=== PATIENT | female | born 1940 | race African-American/Black ===

== ENCOUNTER 2018-06-25 17:57 | Emergency (ER) | payer OTHER ==
[~2018-06-25 17:57] MED LIST: ADVAIR DISKUS 21 DSK INH; FLEXERIL 5MG TAB5 MG PO; GABAPENTIN300 MG PO; GEMFIBROZIL600 MG PO; HYDRODIURIL 112.5 M1 PO; LOSARTAN POTAS100 MG PO; LOSARTAN POTASS50 MG PO; MELOXICAM15 MG PO; METFORMIN1000 MG PO; OMEPRAZOLE20 MG PO; PERCOCET 325 MG1 TA2 PO; PRAVASTATIN SOD10 MG PO; TYLENOL #31 TAB PO
--- NOTE | 2018-06-25 18:54 | ED GENERAL ADULT ---
See Addendum History of Present Illness General Chief Complaint: Chest Pain Stated Complaint: CP, BACK PAIN, BODY ACHES, X "COUPLE WEEKS" Source: patient, family Exam Limitations: no limitations Vital Signs & Intake/Output Vital Signs & Intake/Output Vital Signs Date Time Temp Pulse Resp B/P B/P Pulse O2 O2 Flow FiO2 Mean Ox Delivery Rate 06/25 2026 87 18 183/78 94 Room Air 06/25 2008 97 Room Air 06/259 97.7 95 17 172/84 92 Room Air ED Intake and Output 06/26 0000 06/25 1200 Intake Total 0 Output Total Balance 0 Intake, IV 0 Allergies Coded Allergies: shrimp (Intermediate, HIVES 12/16/15) Reconcile Medications FLUTICASONE/SALMETEROL (Advair 250-50 Diskus) 1 DSK DSK 1 PUFF INH BID BREATHING PROBLEMS (Reported) Gabapentin 300 MG CAPSULE 1 CAP PO TID UNKNOWN (Reported) Gemfibrozil 600 MG TABLET 1 TAB PO BID CHOLESTEROL (Reported) Hydrochlorothiazide (Hydrodiuril 12.5 MG Tab) 12.5 MG CAPSULE 1 CAP PO DAILY WATER PILL (Reported) Losartan Potassium 100 MG TAB 1 TAB PO DAILY BP (Reported) Meloxicam 15 MG TAB 1 TAB PO DAILY PAIN (Reported) METFORMIN HCL (Metformin) 1,000 MG TAB 1 TAB PO BID DIABETES (Reported) Pravastatin (Pravastatin Sodium) 10 MG TAB 1 TAB PO DAILY CHOLESTEROL ( Reported) Triage Note: PT TO ED WITH C/O CHEST DISCOMFORT, COUGH, WEAKNESS X 2 WEEKS. STATES WAS SEEN AT URGENT CARE ONE MONTH AGO AND PLACED ON PO ABTS FOR PNA. FINISHED COURSE OF ABTS. 02 SAT 92-94 % AT TRIAGE. Triage Nurses Notes Reviewed? yes HPI: Pt is a 77 y/o F PMHx COPD, HTN, DM2 presenting with a cough, chest discomfort, back pain x 3 weeks. Pt states that she has pain in her lower back and chest when she takes a deep breath or after coughing. Pt states that she has no pain at rest. Pt states cp is sternal when it occurs and does not radiate. Pt states she was diagnosed with PNA, and finished abx 3 weeks ago. Since then, pt has had a lingering productive cough. Pt states that over the past week, the cough has been improving. Pt admits to some chills, although denies fevers, SOB, GUZM[place]N, hemoptysis, lightheadedness, dizziness, abdominal pain, N/V/D/C. (Pieter Andrew MD) Past History Travel History Traveled to [place] past 21 day No Medical History Any Pertinent Medical History? 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 No (Pieter Andrew MD) Review of Systems Review of Systems Constitutional: Reports: see HPI. Respiratory: Reports: see HPI. Cardiovascular: Reports: see HPI. GI: Denies: see HPI. Genitourinary: Denies: see HPI. Musculoskeletal: Reports: see HPI. (Pieter Andrew MD) Physical Exam Physical Exam General Appearance: well developed/nourished, no apparent distress, alert Head: atraumatic, normal appearance Eyes: Bilateral: normal appearance. Neck: normal inspection, supple Respiratory: normal breath sounds, lungs clear Cardiovascular: regular rate/rhythm, NMRG Peripheral Pulses: 2+ radial (R), 2+ radial (L), 2+ dorsalis pedis (R), 2+ dorsalis pedis (L) Gastrointestinal: normal bowel sounds, soft, non-tender Extremities: normal inspection, no edema Skin: intact, normal color, warm/dry Lymphatic: No palpable LAD Core Measures ACS in differential dx? Yes CVA/TIA Diagnosis: No Sepsis Present: No Sepsis Focused Exam Completed? Yes (Pieter Andrew MD) Progress Differential Diagnoses I considered the following diagnoses in my evaluation of the patient: Could be recurrent pneumonia, low suspicion for severe metabolic derangement, myositis or arthritis. Low suspicion also for acute traumatic process. Plan of Care: Orders Procedure Date/time Status TROPONIN LEVEL 06/25 1831 Complete COMPREHENSIVE METABOLIC PANEL 06/25 183 Complete CBC WITHOUT DIFFERENTIAL 06/25 1831 Complete EKG 06/25 1759 Active Laboratory Tests 06/25/18 1840: Anion Gap 10, Estimated GFR 54 L, BUN/Creatinine Ratio 16.0, Glucose 135 H, Calcium 10.0, Total Bilirubin 0.3, AST 14, ALT 18, Alkaline Phosphatase 83, Troponin I < 0.01, Total Protein 7.5, Albumin 4.3, Globulin 3.2, Albumin/ Globulin Ratio 1.3, CBC w Diff NO MAN DIFF REQ, RBC 3.75 L, MCV 84.1, MCH 28.0, MCHC 33.3, RDW 17.9 H, MPV 7.9, Gran % 71.7, Lymphocytes % 16.4 L, Monocytes % 10.6 H, Eosinophils % 1.1, Basophils % 0.2, Absolute Granulocytes 6.3, Absolute Lymphocytes 1.5, Absolute Monocytes 0.9 H, Absolute Eosinophils 0.1, Absolute Basophils 0 Plan for labs, chest x-ray, EKG, reassessment Initial ED EKG: normal intervals, normal p-waves, normal QRS complex, normal sinus rhythm (Pieter Andrew MD) Departure Departure Time of Disposition: 2046 Disposition: HOME OR SELF CARE Condition: Stable Clinical Impression Primary Impression: Muscular aches Secondary Impressions: Normocytic anemia Referrals: July RUVALCABA,Nav Coe (PCP/Family) Additional Instructions: Thank you for coming to [facility] today. As we discussed, you have worsening anemia of unclear cause. It is important that you follow-up with your doctor for this problem. It is not clear why you are aching, although could be related to the anemia. Please return to the hospital if your symptoms get any worse or you develop any new concerning symptoms such as shortness of breath, chest pain, abdominal pain, nausea, diarrhea. Departure Forms: Customer Survey General Discharge Information (Pieter Andrew MD) PA/GASOLINE TRUCK OPERATOR Co-Sign Statement Statement: ED Attending supervision documentation- I saw and evaluated the patient. I have also reviewed all the pertinent lab results and diagnostic results. I agree with the findings and the plan of care as documented in the PA's/GASOLINE TRUCK OPERATOR's documentation. x I have reviewed the ED Record and agree with the PA's/GASOLINE TRUCK OPERATOR's documentation. [] Additions or exceptions (if any) to the PAs/GASOLINE TRUCK OPERATOR's note and plan are summarized below: [] (Shawn RUVALCABA,Jim) Critical Care Note Critical Care Note Critical Care Time: non-applicable (Pieter Andrew MD)
[2018-06-25 18:57] LABS: ABSOLUTE BASOPHIL COUNT 0 /CUMM (0.0-0.2); ABSOLUTE EOSINOPHIL COUNT 0.1 /CUMM (0.0-0.7); ABSOLUTE GRANULOCYTE CT 6.3 /CUMM (1.4-6.5); ABSOLUTE LYMPH COUNT 1.5 /CUMM (1.2-3.4); ABSOLUTE MONOCYTE COUNT 0.9 /CUMM (0.10-0.60); BASOPHIL % 0.2 % (0.0-2.0); EOSINOPHIL % 1.1 % (0-5); GRANULOCYTE % 71.7 % (42.2-75.2); HEMATOCRIT 31.6 % (37-47); MEAN CORPUSCULAR HGB CONC 33.3 G/DL (33.0-37.0); MEAN CORPUSCULAR VOLUME 84.1 FL (81.0-99.0); MEAN PLATELET VOLUME 7.9 FL (7.4-10.4); PLATELET COUNT 399 /CUMM (130-400); RBC DISTRIBUTION WIDTH 17.9 % (11.5-14.5); RED BLOOD CELL CT 3.75 /CUMM (4.20-5.40); WHITE BLOOD CELL COUNT 8.9 /CUMM (4.8-10.8)
--- NOTE | 2018-06-25 19:17 | RADIOLOGY REPORT ---
EXAMINATION: XR CHEST CLINICAL INFORMATION: Chest pain COMPARISON: 03/02/2017 TECHNIQUE: 2 views of the chest were obtained. FINDINGS: Lungs are well expanded and clear. No pulmonary edema, consolidation, pneumothorax or pleural effusion. Cardiac silhouette is at the upper range of normal size. The hilar contours are normal. Atherosclerotic calcification of the aortic arch. Prominent paraspinal osteophyte/enthesophyte formation of the degenerated thoracic spine. Osteoarthritis of bilateral acromioclavicular joints and left glenohumeral joint. IMPRESSION: Lungs are clear. No acute pulmonary disease compared to 03/02/2017.
[2018-06-25 20:26] VITALS: BP 183/78
== END 2018-06-25 20:56 ==
LOC: ERH 17:57
PROVIDERS: Physician Assistant Medical
DX: M79.1 Myalgia (principal); D64.9 Anemia, unspecified; R07.89 Other chest pain; I10 Essential (primary) hypertension; E78.5 Hyperlipidemia, unspecified; J44.9 Chronic obstructive pulmonary disease, unspecified; E11.9 Type 2 diabetes mellitus without complications
CPT/HCPCS: 71046; 93005; 93010